=== PATIENT | male | born 1990 | race American Indian/Alaskan Native ===

== ENCOUNTER 2020-03-15 03:10 | Emergency (ER) | payer SELFPAY ==
[2020-03-15 04:32] VITALS: BP 103/78
--- NOTE | 2020-03-15 05:02 | XRay Report ---
EXAMINATION: Right foot radiograph, 3 views, 03/15/2020 CLINICAL INFORMATION: Right foot pain COMPARISON: None. FINDINGS: There is no evidence of acute fracture of the right foot. No significant soft tissue swelli ng is visualized. No significant degenerative changes. Signer Name: Rasheeda Matthews MD Signed: 03/15/2020 4:58 AM Workstation Name: [id number]
== END 2020-03-15 13:00 ==
LOC: ED 03:10
DX: M79.671 Pain in right foot (principal); Z53.21 Procedure and treatment not carried out due to patient leaving prior to being seen by health care provider